=== PATIENT | female | born 1990 ===

== ENCOUNTER 2024-09-03 04:13 | Inpatient (IN) | payer OTHER ==
[2024-09-03] MEDS ORDERED: Sodium Chloride 0.9% 10 ML Syringe FLUSH PRN (05:27)
[2024-09-03] MEDS ORDERED: Oxytocin/0.9 % Sodium Chloride 30 UNIT/500 ML BAG IV SCH (05:30)
[2024-09-03 05:51] LABS: BASOPHILS PERCENT AUTO 0.4 % (0.0-1.0); EOSINOPHILS ABSOLUTE AUTO 0.1 K/mm3 (0.0-0.4); EOSINOPHILS PERCENT AUTO 0.7 % (0.0-6.0); HEMOGLOBIN 12.8 gm/dl (12.0-16.0); IMMATURE GRAN ABSOLUTE AUTO 0.06 K/mm3 (0.00-0.05); IMMATURE GRAN PERCENT AUTO 0.7 % (0.0-0.4); LYMPHOCYTES ABSOLUTE AUTO 1.4 K/mm3 (1.0-4.8); LYMPHOCYTES PERCENT AUTO 16.8 % (24.0-44.0); MEAN CORPUSCULAR HEMOGLOBIN 29.2 pg (28.0-32.0); MEAN CORPUSCULAR HGB CONC 33.7 g/dl (32.0-36.0); MEAN CORPUSCULAR VOLUME 86.6 fl (83.0-99.0); MEAN PLATELET VOLUME 9.4 fl (9.4-12.3); MONOCYTES ABSOLUTE AUTO 0.7 K/mm3 (0.0-0.8); MONOCYTES PERCENT AUTO 8.9 % (0.0-8.0); NEUTROPHILS PERCENT AUTO 72.5 % (41.0-71.0); PLATELET COUNT,PLT 262 K/mm3 (150-400); RED BLOOD CELL COUNT 4.39 M/mm3 (4.10-5.30); WHITE BLOOD CELL COUNT,WBC 8.23 K/mm3 (3.9-11.3)
[2024-09-03] MEDS ORDERED: ceFAZolin 2 GM Vial IV ONE (05:54)
[2024-09-03] MEDS ORDERED: Azithromycin 1,000 MG in Sodium Chloride 0.9% 500 ML IV ONE (05:57)
[2024-09-03] MEDS ORDERED: Sodium Chloride 0.9% 50 ML IV SCH (06:15)
[2024-09-03] MEDS: Lactated Ringers 1,000 ML IV SCH (06:15)
[2024-09-03] MEDS ORDERED: Ondansetron 4 MG/2 ML SDV ONE (06:35)
[2024-09-03] MEDS ORDERED: Ketorolac 30 MG/ML SDV ONE ×2 (06:35→08:15)
[2024-09-03] MEDS ORDERED: Ropivacaine 0.5% 5 MG/ML 30 ML SDV ONE (06:35)
[2024-09-03] MEDS ORDERED: Morphine PF 10 MG/10 ML SDV ONE (06:36)
[2024-09-03] MEDS ORDERED: fentaNYL 100 MCG/2 ML SDV ONE (06:36)
[2024-09-03] MEDS ORDERED: Bupivacaine 0.25% 10 ML SDV ONE (06:50)
[2024-09-03] MEDS ORDERED: Azithromycin 500 MG Vial ONE (07:03)
[2024-09-03] MEDS ORDERED: diphenhydrAMINE 50 MG/ML SDV IVPUSH PRN ×2 (07:06→09:18)
[2024-09-03] MEDS ORDERED: fentaNYL 100 MCG/2 ML SDV IVPUSH PRN (07:06)
[2024-09-03] MEDS ORDERED: Ondansetron 4 MG/2 ML SDV IVPUSH PRN (07:06)
[2024-09-03] MEDS ORDERED: Meperidine 50 MG/ML Vial IVPUSH PRN (07:06)
[2024-09-03] MEDS: Metoclopramide 10 MG/2 ML SDV IVPUSH ONE (07:13)
[2024-09-03] MEDS: Bupivacaine 0.5% 30 ML SDV ONE (07:40)
[2024-09-03] MEDS ORDERED: ceFAZolin 2 GM Vial ONE (07:55)
[2024-09-03] MEDS ORDERED: EPINEPHrine 1 MG/ML SDV ONE (07:59)
[2024-09-03] MEDS ORDERED: Dexamethasone 4 MG/ML SDV ONE (08:15)
[2024-09-03] MEDS ORDERED: ePHEDrine 50 MG/ML SDV IM PRN (08:25)
[2024-09-03] MEDS ORDERED: Sodium Chloride 0.9% 10 ML Syringe FLUSH SCH (09:00)
[2024-09-03] MEDS ORDERED: Acetaminophen 325 MG Tab PO PRN (09:18)
[2024-09-03] MEDS ORDERED: ePHEDrine 50 MG/ML SDV IVPUSH PRN (09:18)
[2024-09-03] MEDS ORDERED: Naloxone 0.4 MG/ML SDV IVPUSH PRN (09:18)
[2024-09-03] MEDS ORDERED: Acetaminophen/oxyCODONE 325-5 MG Tab PO PRN ×2 (09:18)
[2024-09-03] MEDS: Dextrose 5%-Lactated Ringers 1,000 ML IV SCH (10:22)
[2024-09-03] MEDS: Azithromycin 500 MG in Sodium Chloride 0.9% 250 ML IV ONE (11:20)
[2024-09-03] MEDS: Citric Acid/Sodium Citrate Solution 30 ML Cup PO ONE (13:16)
[2024-09-03] MEDS: Ketorolac 30 MG/ML SDV IVPUSH SCH (14:24)
[2024-09-03] MEDS: Ondansetron 4 MG/2 ML SDV IVPUSH ONE (15:52)
[2024-09-04 06:07] LABS: BASOPHILS PERCENT AUTO 0.1 % (0.0-1.0); EOSINOPHILS PERCENT AUTO 0.1 % (0.0-6.0); HEMATOCRIT 34.7 % (37.0-47.0); HEMOGLOBIN 11.7 gm/dl (12.0-16.0); IMMATURE GRAN ABSOLUTE AUTO 0.06 K/mm3 (0.00-0.05); IMMATURE GRAN PERCENT AUTO 0.4 % (0.0-0.4); LYMPHOCYTES ABSOLUTE AUTO 1.4 K/mm3 (1.0-4.8); LYMPHOCYTES PERCENT AUTO 8.9 % (24.0-44.0); MEAN CORPUSCULAR HEMOGLOBIN 29.3 pg (28.0-32.0); MEAN CORPUSCULAR HGB CONC 33.7 g/dl (32.0-36.0); MEAN CORPUSCULAR VOLUME 86.8 fl (83.0-99.0); MEAN PLATELET VOLUME 9.5 fl (9.4-12.3); MONOCYTES ABSOLUTE AUTO 1.4 K/mm3 (0.0-0.8); MONOCYTES PERCENT AUTO 9.3 % (0.0-8.0); NEUTROPHILS ABSOLUTE AUTO 12.4 K/mm3 (1.8-7.7); NEUTROPHILS PERCENT AUTO 81.2 % (41.0-71.0); PLATELET COUNT,PLT 239 K/mm3 (150-400); WHITE BLOOD CELL COUNT,WBC 15.32 K/mm3 (3.9-11.3)
[2024-09-04] MEDS ORDERED: Ibuprofen 600 MG Tab PO SCH (08:30)
[2024-09-04] MEDS: Ibuprofen 600 MG Tab PO SCH (11:16)
[2024-09-05] MEDS: Levothyroxine 75 MCG Tab PO SCH (06:23)
== END 2024-09-05 10:30 | disposition home or self-care (01) | DRG 788 ==
LOC: JD.OBCHECK 04:13 → JD.OB 04:21 → JD.OBCHECK 05:27
PROVIDERS: ADMIT Obstetrics & Gynecology; ATTEND Obstetrics & Gynecology
PROC: 10D00Z1 Extraction of Products of Conception, Low, Open Approach (ICD-10-PCS; principal; 2024-09-03 07:00)
DX: O42.02 Full-term premature rupture of membranes, onset of labor within 24 hours of rupture (principal); O34.211 Maternal care for low transverse scar from previous cesarean delivery; Z3A.38 38 weeks gestation of pregnancy; Z37.0 Single live birth
CPT/HCPCS: 36415; 59025; 84112; 85025; 86592; 86850; 86900; 86901; A9270-GY; J0171; J0456; J0665; J0690; J1100; J1885; J2274; J2405; J2765; J2795; J3010; J7120; J7121; J7999